=== PATIENT | female | born 1995 ===

== ENCOUNTER 2019-10-27 19:30 | Emergency (ER) | payer SELFPAY ==
[2019-10-27 19:34] VITALS: BP 120/82; PULSE 83; RESP 18; TEMP 36.7; O2SAT 100; BMI 22.9
[2019-10-27 19:52] VITALS: BP 114/81; PULSE 81; RESP 16; O2SAT 98
--- NOTE | 2019-10-27 19:59 | ED_ITS ---
HPI - Abdominal Pain General: Chief Complaint: Abdominal Pain Stated Complaint: abd pain Time Seen by Provider: 10/27/19 19:42 History of Present Illness: HPI narrative: 24-year-old female with epigastric pain who came from work tonight. She says the pain started yesterday but was worse today she is not vomited, but she is nauseated. She has had some diarrhea last 24 hours as well. MD elicited complaint: abdominal pain Pertinent past history: none Onset (ago): day(s) (2) Location: Epigastric Severity: moderate Quality: cramping and stabbing Radiation: none Migration to: no migration Exacerbating factors: movement Relieving factors: nothing Associated Symptoms: Reports loose stools and nausea; Denies belching, coffee ground emesis, dysuria, fever(s), hematuria, hematemesis, melena and vomiting Review of Systems Const: Denies: fever(s) Eyes: Denies: change in vision ENMT: Denies: swelling of lips/tongue or sinus pain Card: Denies: chest pain, palpitations or irregular heart rhythm Resp: Denies: dyspnea, productive cough, non-productive cough or wheezing GI: Reports: nausea; Denies: vomiting, hematemesis, coffee ground emesis, belching or melena : Denies: dysuria or hematuria Musc: Denies: neck pain or back pain Skin/Breast: Denies: rash, pruritus or erythema Neuro: Denies: headache(s), dizziness or vertigo Psych: Denies: anxiety [facility] Female Reproductive History: : 2 Physical Exam Const: GENERAL APPEARANCE: well developed ORIENTATION/CONSCIOUSNESS: Yes oriented to person, Yes oriented to place and Yes oriented to time HENMT: COMMON NORMALS: normocephalic, external ears normal and Normal external nose present HEAD & SCALP: normocephalic FACE & SINUS: normal facial exam NOSE: Normal external nose present and No nasal discharge present EXTERNAL EAR: Yes external ears normal MOUTH: tongue normal Eye: COMMON NORMALS: Equal, round and reactive pupils present, EOMs intact bilaterally and conjunctivae normal EYELID: eyelids normal CONJUNCTIVA: Yes conjunctivae normal PUPIL: Yes Equal, round and reactive pupils present Neck/C-Spine: GENERAL: No tracheal deviation Chest: COMMONS NORMALS: normal inspection of the chest CHEST: No tenderness Resp: COMMON NORMALS: clear to auscultation bilaterally EFFORT & INSPECTION: No tachypneic, No respiratory distress, No retractions, No uses accessory muscles and No tracheal deviation AUSCULTATION: clear to auscultation bilaterally, no rhonchi, no wheezes and lung sounds not diminished Cardio: COMMON NORMALS: regular rate and regular rhythm RATE: regular rate RHYTHM: regular rhythm HEART SOUNDS: no murmurs PERIPHERAL PULSES: radial pulses present GI: INSPECTION: No abdominal distension AUSCULTATION: No Hyperactive bowel sounds present and No Hypoactive bowel sounds present PALPATION: Yes Tenderness to palpation present (GI) (Epigastric), No Guarding due to palpation present (GI) and No Rigid due to palpation PERCUSSION: no dullness to percussion and no tympanic to percussion Neuro: SENSORIUM/ORIENTATION: Yes oriented to person, Yes oriented to place and Yes oriented to time Psych: COMMON NORMALS: mental status grossly normal Skin: COMMON NORMALS: no rashes or lesions noted GENERAL SKIN EXAM: no rashes or lesions noted Course Vital Signs: Vital signs: Vital Signs Temperature 98.0 F 10/27/19 19:34 Pulse Rate 77 10/27/19 22:03 Respiratory Rate 16 10/27/19 22:03 Blood Pressure 120/85 10/27/19 22:03 Pulse Oximetry 98 10/27/19 22:03 MDM - Abdominal Pain MDM Narrative: Medical decision making narrative: 24-year-old female with epigastric pain. Her white blood cell count is 8.2. Other labs are benign. Pain is improving after IV Toradol and Zofran. CT did not reveal a cause. She has likely mild gastritis. She will be treated for such Lab Data: Labs: Lab Results 10/27/19 10/27/19 10/27/19 Range/Units 20:15 20:15 20:15 WBC 8.2 (4.0-10.0) 10^3/ uL RBC 4.92 (4.1-5.3) 10^6/u L Hgb 15.1 (11.5-15.3) g/dL Hct 45.3 (37.0-47.0) % MCV 92.1 (81-99) fL MCH 30.7 (28.0-34.0) pg MCHC 33.3 (30.0-36.0) g/dL RDW 13.0 (12.1-15.1) % Plt Count 224 (130-400) 10^3/c mm MPV 11.5 H (7.4-10.4) fL Neut % (Auto) 56.9 % Lymph % (Auto) 31.0 % Stearns % (Auto) 7.7 % Eos % (Auto) 3.6 % Baso % (Auto) 0.6 % Neut # (Auto) 4.68 (1.8-7.7) 10^3/u L Lymph # (Auto) 2.6 (0.8-4.8) 10^3/u L Stearns # (Auto) 0.6 (0.2-0.9) 10^3/u L Eos # (Auto) 0.3 (0.0-0.8) 10^3/u L Baso # (Auto) 0.1 (0.0-0.1) 10^3/u L Nucleated RBC % (a uto) 0 % Nucleated RBCs # 0.0 /100WBC Sodium 136 (136-145) mmol/L Potassium 3.9 (3.5-5.1) mmol/L Chloride 103 (98-107) mmol/L Carbon Dioxide 24 (22-29) mmol/L Anion Gap 12.9 (5-19) BUN 8 (6-20) mg/dL Creatinine 0.7 (0.5-0.9) mg/dL GFR Calculation 102.8 (90-130) mL/min Glucose 87 (65-115) mg/dL Calculated Osmolal ity 277 L (285-295) mOsm/k g Lactate 1.0 (0.5-2.2) mmol/L Calcium 9.8 (8.5-10.5) mg/dL Total Bilirubin 0.2 (0.15-1.2) mg/dL AST 22 (0-32) U/L ALT 35 H (0-33) U/L Alkaline Phosphata se 70 (35-105) IU/L Total Protein 7.4 (6.6-8.7) g/dL Albumin 4.7 (3.5-5.2) g/dL Globulin 2.7 (1.3-4.6) g/dL Lipase 40 (13-60) U/L HCG, Qual (Negative) Urine Color (Yellow) Urine Appearance (CLEAR) Urine pH (5-7) Ur Specific Gravit y (1.005-1.030) Urine Protein (Negative) Urine Glucose (UA) (Normal) Urine Ketones (Negative) Urine Blood (Negative) Urine Nitrate (Negative) Urine Bilirubin (NEGATIVE) Urine Urobilinogen (Negative) mg/dL Ur Leukocyte Soha ase (Negative) 10/27/19 10/27/19 Range/Units 20:15 21:33 WBC (4.0-10.0) 10^3/ uL RBC (4.1-5.3) 10^6/u L Hgb (11.5-15.3) g/dL Hct (37.0-47.0) % MCV (81-99) fL MCH (28.0-34.0) pg MCHC (30.0-36.0) g/dL RDW (12.1-15.1) % Plt Count (130-400) 10^3/c mm MPV (7.4-10.4) fL Neut % (Auto) % Lymph % (Auto) % Stearns % (Auto) % Eos % (Auto) % Baso % (Auto) % Neut # (Auto) (1.8-7.7) 10^3/u L Lymph # (Auto) (0.8-4.8) 10^3/u L Stearns # (Auto) (0.2-0.9) 10^3/u L Eos # (Auto) (0.0-0.8) 10^3/u L Baso # (Auto) (0.0-0.1) 10^3/u L Nucleated RBC % (a uto) % Nucleated RBCs # /100WBC Sodium (136-145) mmol/L Potassium (3.5-5.1) mmol/L Chloride (98-107) mmol/L Carbon Dioxide (22-29) mmol/L Anion Gap (5-19) BUN (6-20) mg/dL Creatinine (0.5-0.9) mg/dL GFR Calculation (90-130) mL/min Glucose (65-115) mg/dL Calculated Osmolal ity (285-295) mOsm/k g Lactate (0.5-2.2) mmol/L Calcium (8.5-10.5) mg/dL Total Bilirubin (0.15-1.2) mg/dL AST (0-32) U/L ALT (0-33) U/L Alkaline Phosphata se (35-105) IU/L Total Protein (6.6-8.7) g/dL Albumin (3.5-5.2) g/dL Globulin (1.3-4.6) g/dL Lipase (13-60) U/L HCG, Qual Negative (Negative) Urine Color Yellow (Yellow) Urine Appearance Clear (CLEAR) Urine pH 5 (5-7) Ur Specific Gravit y 1.010 (1.005-1.030) Urine Protein Neg (Negative) Urine Glucose (UA) Norm (Normal) Urine Ketones Negative (Negative) Urine Blood Neg (Negative) Urine Nitrate Negative (Negative) Urine Bilirubin Neg (NEGATIVE) Urine Urobilinogen Norm (Negative) mg/dL Ur Leukocyte Soha ase Negative (Negative) Discharge Plan Discharge Patient Disposition: Home Clinical Impression: Gastritis Qualifiers: Gastritis type: unspecified gastritis Chronicity: acute Gastritis bleeding: without bleeding Qualified Code(s): K29.00 - Acute gastritis without bleeding Condition: Stable Prescriptions: New Prevacid 30 mg capsule,delayed release(DR/EC) 30 mg PO DAILY Qty: 30 RF: 0 Discharge Orders: Discharge Order (Routine); Ordered 10/27/19 Ordered By: Lamin Yoon Referrals: [facility] [Primary Care Provider] - 4-7 days Discharge Diet: Advance as tolerated Discharge Activity: Increase activity as tolerated Patient Instructions: Gastritis (ED) Activity Restrictions/Additional Instructions: Return for fever greater than 100, vomiting liquids or medications, worsening pain despite treatment, other concerning symptoms. Stand Alone Forms: Work/School Release Discharge Date/Time: 10/27/19 22:07 Coding Level of Care Code ED Breeding Technician for Micah Jaime
[2019-10-27 20:14] VITALS: BP 110/72; PULSE 78; RESP 16; O2SAT 99
[2019-10-27] MEDS: sodium chloride 0.9% 500 ML IV (20:15)
--- NOTE | 2019-10-27 20:23 | CTR_ITS ---
PROCEDURE INFORMATION: Exam: CT Abdomen And Pelvis With Contrast Exam date and time: 10/27/2019 8:50 PM Age: 24 years old Clinical indication: Abdominal pain; Generalized; Patient HX: C/O abd pain w diarrhea x 2 days; Additional info: Epigastric pain TECHNIQUE: Imaging protocol: Computed tomography of the abdomen and pelvis with intravenous contrast. Radiation optimization: All CT scans at this facility use at least one of these dose optimization techniques: automated exposure control; mA and/or kV adjustment per patient size (includes targeted exams where dose is matched to clinical indication); or iterative reconstruction. Contrast material: OMNI 300; Contrast volume: 95 ml; Contrast route: INTRAVENOUS (IV); COMPARISON: No relevant prior studies available. RADIATION DOSE METRICS: Total DLP (mGy-cm): 709.95 FINDINGS: Liver: Normal. No mass. Gallbladder and bile ducts: The gallbladder is partially contracted. The bile ducts are normal. Pancreas: Normal. No ductal dilation. Spleen: Normal. No splenomegaly. Adrenals: Normal. No mass. Kidneys and ureters: Normal. No hydronephrosis. Stomach and bowel: Unremarkable. No obstruction. No mucosal thickening. Appendix: The appendix is visualized and is normal. Intraperitoneal space: Unremarkable. No free air. No significant fluid collection. Vasculature: Unremarkable. No abdominal aortic aneurysm. Lymph nodes: Unremarkable. No enlarged lymph nodes. Bladder: Unremarkable as visualized. Reproductive: Unremarkable as visualized. Bones/joints: Unremarkable. No acute fracture. Soft tissues: Unremarkable. CT/CT abdomen pelvis w con* [id number] IMPRESSION: No acute abnormality identified in the abdomen or pelvis. Radiation Dose CTDIVOL = (mGy): DLP = 709.95 (mGy-cm)
[2019-10-27 20:28] LABS: Basophils # 0.1 10^3/uL (0.0-0.1); Basophils % 0.6 %; Eosinophils # 0.3 10^3/uL (0.0-0.8); Eosinophils % 3.6 %; Hematocrit 45.3 % (37.0-47.0); Hemoglobin 15.1 g/dL (11.5-15.3); Lymphocytes # 2.6 10^3/uL (0.8-4.8); Mean Corpuscular HGB Conc 33.3 g/dL (30.0-36.0); Mean Corpuscular Hemoglobin 30.7 pg (28.0-34.0); Mean Corpuscular Volume 92.1 fL (81-99); Mean Platelet Volume 11.5 fL (7.4-10.4); Monocytes # 0.6 10^3/uL (0.2-0.9); Monocytes % 7.7 %; Neutrophils # 4.68 10^3/uL (1.8-7.7); Neutrophils % 56.9 %; Nucleated Red Blood Cells % 0 %; Platelet Count 224 10^3/cmm (130-400); Red Blood Count 4.92 10^6/uL (4.1-5.3); White Blood Count 8.2 10^3/uL (4.0-10.0)
[2019-10-27 20:51] LABS: HCG, Serum Qual Negative (Negative)
[2019-10-27] MEDS: iohexol 300 mg/mL 100 mL Btl IV (21:06)
[2019-10-27 21:08] LABS: Alanine Aminotransferase 35 U/L (0-33); Albumin Level 4.7 g/dL (3.5-5.2); Alkaline Phosphatase 70 IU/L (35-105); Anion Gap 12.9 (5-19); Aspartate Amino Transferase 22 U/L (0-32); Blood Urea Nitrogen 8 mg/dL (6-20); Calcium 9.8 mg/dL (8.5-10.5); Carbon Dioxide 24 mmol/L (22-29); Chloride 103 mmol/L (98-107); Globulin 2.7 g/dL (1.3-4.6); Glomerular Filtration Rate 102.8 mL/min (90-130); Glucose 87 mg/dL (65-115); Lipase 40 U/L (13-60); Osmolality Calculated 277 mOsm/kg (285-295); Potassium 3.9 mmol/L (3.5-5.1); Sodium 136 mmol/L (136-145); Total Bilirubin 0.2 mg/dL (0.15-1.2); Total Protein 7.4 g/dL (6.6-8.7)
--- NOTE | 2019-10-27 21:10 | PC.NURSE ---
patient to ct
[2019-10-27 21:16] VITALS: BP 115/81; PULSE 77; RESP 16; O2SAT 100
[2019-10-27] MEDS: ketorolac 30 mg/mL INJ IVP (21:53)
[2019-10-27] MEDS: ondansetron 2 mg/ML SDV 2 mL 4 MG IVP (21:53)
[2019-10-27 21:55] VITALS: BP 127/85; PULSE 68; RESP 15; O2SAT 99
[2019-10-27 22:01] LABS: Add Urine Microscopic? NO
[2019-10-27 22:03] VITALS: BP 120/85; PULSE 77; RESP 16; O2SAT 98
[2019-10-27 22:05] LABS: Bilirubin Urine Neg (NEGATIVE); Blood Urine Neg (Negative); Glucose Urine UA Norm (Normal); Ketones Urine Negative (Negative); Leukocyte Esterase Urine Negative (Negative); Nitrate Urine Negative (Negative); Protein Urine Neg (Negative); Urine Appearance Clear (CLEAR); Urine Color Yellow (Yellow); Urobilinogen Urine Norm (Negative); pH Urine 5 (5-7)
== END 2019-10-27 22:07 | disposition home or self-care (01) ==
PROVIDERS: Emergency Provider Emergency Medicine; PCP Nurse Practitioner Family
DX: K29.00 Acute gastritis without bleeding (principal)
CPT/HCPCS: 12345; 74177; 80053; 81003; 83605; 83690; 84703; 85025; 96360; 96361; 96374; 96375; 99283; J1885; J2405; J7040; Q9967